=== PATIENT | male | born 1975 | race Caucasian/White ===

== ENCOUNTER 2023-03-30 16:44 | Emergency (ER) | payer OTHER ==
[2023-03-30 17:16] VITALS: TEMP 98.1; BMI 31.5
[2023-03-30 17:49] LABS: VENOUS O2 SATURATION 74.8 % (70-80); VENOUS PH 7.471 (7.310-7.410)
[2023-03-30 19:07] LABS: BASO % 0.5 % (0-2.0); EOS % 4.7 % (0-4.5); HEMATOCRIT 40.6 % (35.4-49); HEMOGLOBIN 13.5 GM/dL (11.7-16.9); LYMPH % 26.2 % (8-40); MCH 27.5 pg (25.7-33.7); MCHC 33.2 g/dl (32.0-35.9); MEAN CELL VOLUME 82.8 fl (80-96); MEAN PLT VOLUME 7.9 fl (7.5-11.1); MONO % 7.1 % (3.8-10.2); NEUT % 61.5 % (42.8-82.8); PLATELET COUNT 277 10^3/uL (134-434); RBC 4.91 M/mm3 (4.00-5.60); RDW 14.4 % (11.9-15.9); WHITE BLOOD COUNT 10.8 K/mm3 (4.0-10.0)
[2023-03-30 19:22] VITALS: BP 125/80; PULSE 62; RESP 16
[2023-03-30] MEDS ORDERED: ACETAMINOPHEN 1000 MG/100 ML BAG IVPB ONE (19:32)
[2023-03-30] MEDS ORDERED: LIDOCAINE 5% TOPICAL PATCH TP ONE (19:33)
[2023-03-30 19:39] LABS: POTASSIUM 3.6 mmol/L (3.5-5.1)
[2023-03-30 19:41] LABS: CALCIUM 8.6 mg/dL (8.5-10.1)
[2023-03-30 19:42] LABS: ALBUMIN 3.8 g/dl (3.4-5.0); BLOOD UREA NITROGEN 14.4 mg/dL (7-18)
[2023-03-30 19:45] LABS: CREATININE 0.9 mg/dL (0.55-1.3)
[2023-03-30 19:46] LABS: TOT PROT 7.1 g/dl (6.4-8.2)
[2023-03-30 19:47] LABS: BILIRUBIN,TOTAL 0.2 mg/dL (0.2-1)
[2023-03-30 19:50] LABS: N-TERMINAL BNP 22.2 pg/ml (5-125)
[2023-03-30] MEDS ORDERED: ACETAMINOPHEN INJECTION 100 ML IVPB ONE (20:02)
[2023-03-30] MEDS ORDERED: LIDOCAINE 5% TOPICAL PATCH ONE (20:03)
[2023-03-30] MEDS ORDERED: LIDOCAINE PATCH REMOVAL MC SCH (22:00)
== END 2023-03-30 23:04 | disposition home or self-care (01) ==
LOC: JER 16:44
PROC: 3E033NZ Introduction of Analgesics, Hypnotics, Sedatives into Peripheral Vein, Percutaneous Approach (ICD-10-PCS; principal; 2023-03-30)
DX: R06.02 Shortness of breath (principal); R07.9 Chest pain, unspecified; R05.9 Cough, unspecified; Z20.822 Contact with and (suspected) exposure to COVID-19
CPT/HCPCS: 0241U-QW; 36415; 71045-TC-FY; 71275-TC; 74174-TC; 80053; 82803; 83880; 84484; 85025; 93005; 93010; 99285-25; Q9967

== ENCOUNTER 2023-09-14 14:29 | Emergency (ER) | payer OTHER ==
[2023-09-14 14:55] VITALS: BP 138/67; PULSE 87; RESP 18; TEMP 100; BMI 29.8
[2023-09-14] MEDS ORDERED: ONDANSETRON *ODT* 4 MG TABLET ONE (15:48)
[2023-09-14] MEDS ORDERED: ACETAMINOPHEN 500 MG TABLET (FP) ONE (15:48)
[2023-09-14] MEDS ORDERED: KETOROLAC TROMETHAMINE 30 MG/1 ML VIAL ONE (15:50)
[2023-09-14] MEDS: KETOROLAC TROMETHAMINE 30 MG/1 ML VIAL IM ONE (15:58)
[2023-09-14] MEDS: ACETAMINOPHEN 500 MG TABLET (FP) PO ONE (15:59)
[2023-09-14] MEDS: ONDANSETRON *ODT* 4 MG TABLET SL ONE (15:59)
== END 2023-09-14 16:53 | disposition home or self-care (01) ==
LOC: JERFT 14:29
PROC: 3E0233Z Introduction of Anti-inflammatory into Muscle, Percutaneous Approach (ICD-10-PCS; principal; 2023-09-14)
DX: M79.10 Myalgia, unspecified site (principal); R05.9 Cough, unspecified; R50.9 Fever, unspecified; R11.0 Nausea; J06.9 Acute upper respiratory infection, unspecified; Z20.822 Contact with and (suspected) exposure to COVID-19
CPT/HCPCS: 0241U-QW; 99284-25; Q0162

== ENCOUNTER 2024-02-19 19:55 | Emergency (ER) | payer OTHER ==
[2024-02-19 20:05] VITALS: BP 125/71; PULSE 66; RESP 20; TEMP 98.5; BMI 26.9
[2024-02-19] MEDS ORDERED: ACETAMINOPHEN 325 MG TABLET (FP) ONE (21:53)
[2024-02-19] MEDS ORDERED: KETOROLAC TROMETHAMINE 30 MG/1 ML VIAL ONE (21:53)
[2024-02-19] MEDS: KETOROLAC TROMETHAMINE 30 MG/1 ML VIAL IM ONE (22:06)
[2024-02-19] MEDS: ACETAMINOPHEN 500 MG TABLET (FP) PO ONE (22:07)
== END 2024-02-19 22:07 | disposition home or self-care (01) ==
LOC: JER 19:55
PROC: 3E0233Z Introduction of Anti-inflammatory into Muscle, Percutaneous Approach (ICD-10-PCS; principal; 2024-02-19)
DX: S29.9XXA Unspecified injury of thorax, initial encounter (principal); M54.6 Pain in thoracic spine; R51.9 Headache, unspecified; V00.841A Fall from standing electric scooter, initial encounter
CPT/HCPCS: 71046-TC-FY; 93005; 93010; 99284-25

== ENCOUNTER 2025-01-04 14:43 | Emergency (ER) | payer OTHER ==
[2025-01-04 14:57] VITALS: TEMP 98.3; BMI 28.7
[2025-01-04] MEDS ORDERED: METOCLOPRAMIDE HCL INJECTION 10 MG/2 ML VIAL ONE (16:31)
[2025-01-04] MEDS ORDERED: MECLIZINE HCL 25 MG TABLET (FP) ONE (16:31)
[2025-01-04] MEDS: LACTATED RINGERS SOLUTION 1000 ML INFUS.BAG IV ONE (16:39)
[2025-01-04] MEDS: METOCLOPRAMIDE HCL INJECTION 10 MG/2 ML VIAL IVPB ONE (16:39)
[2025-01-04] MEDS: MECLIZINE HCL 25 MG TABLET (FP) PO ONE (16:39)
[2025-01-04 17:35] LABS: ABSOLUTE IMMATURE GRANULOCYTES 0.02 x10^3/uL (0.0-0.031); BASOPHILS # 0.02 x10^3/uL (0.01-0.08); EOSINOPHIL % 0.6 % (0.8-7.0); EOSINOPHILS # 0.05 x10^3/uL (0.04-0.54); HEMATOCRIT 39.3 % (40.1-51.0); HEMOGLOBIN 12.7 g/dL (13.7-17.5); MCHC 32.3 g/dl (32.3-36.5); MEAN CELL VOLUME 85.6 fl (79.0-92.2); MEAN PLT VOLUME 9.8 fl (9.4-12.4); MONOCYTE % 6.5 % (5.3-12.2); PLATELET COUNT 214 x10^3/uL (163-337); RDW 13.4 % (12.1-15.9); URINE APPEARANCE CLOUDY; URINE BILIRUBIN NEGATIVE (NEGATIVE); URINE COLOR YELLOW; URINE GLUCOSE (UA) NEGATIVE (NEGATIVE); URINE KETONE TRACE (NEGATIVE); URINE LEUK ESTERASE NEGATIVE (NEGATIVE); URINE NITRITE NEGATIVE (NEGATIVE); URINE PROTEIN TRACE (NEGATIVE)
[2025-01-04 18:16] LABS: POTASSIUM 3.9 mmol/L (3.5-5.1)
[2025-01-04 18:19] LABS: CALCIUM 9.7 mg/dL (8.5-10.1)
[2025-01-04 18:20] LABS: ALBUMIN 3.9 g/dl (3.4-5.0); BLOOD UREA NITROGEN 13.9 mg/dL (7-18); MAGNESIUM 2.1 mg/dL (1.8-2.4)
[2025-01-04 18:22] LABS: CREATININE 0.9 mg/dL (0.55-1.3); PHOSPHOROUS 2.8 mg/dL (2.5-4.9)
[2025-01-04 18:24] LABS: BILIRUBIN,TOTAL 0.4 mg/dL (0.2-1); TOT PROT 6.9 g/dl (6.4-8.2)
[2025-01-04 19:27] VITALS: BP 104/59; PULSE 61; RESP 16
== END 2025-01-04 19:28 | disposition home or self-care (01) ==
LOC: JER 14:43
PROC: 3E033GC Introduction of Other Therapeutic Substance into Peripheral Vein, Percutaneous Approach (ICD-10-PCS; principal; 2025-01-04)
DX: R42 Dizziness and giddiness (principal); R10.11 Right upper quadrant pain
CPT/HCPCS: 0241U-QW; 36415; 71045-TC-FY; 74176-TC; 76705-TC; 80053; 81003; 83690; 83735; 84100; 84484; 85025; 87077; 87086; 93005; 93010; 99285-25